=== PATIENT | female | born 1965 | race Caucasian/White ===

== ENCOUNTER 2018-05-01 07:27 | Emergency (ER) | payer OTHER ==
[~2018-05-01] VITALS: Ht 154.9 cm; Wt 60.8 kg
== END 2018-05-01 15:44 | disposition home or self-care (01) ==
LOC: ER 07:27
DX: J45.901 Unspecified asthma with (acute) exacerbation (principal); J11.1 Influenza due to unidentified influenza virus with other respiratory manifestations

== ENCOUNTER 2019-04-16 01:29 | Emergency (ER) | payer OTHER ==
[~2019-04-16] VITALS: Ht 154.9 cm; Wt 61.7 kg
== END 2019-04-16 07:47 | disposition home or self-care (01) ==
LOC: ER 01:29
DX: K52.89 Other specified noninfective gastroenteritis and colitis (principal); E86.0 Dehydration

== ENCOUNTER 2019-06-12 00:10 | Emergency (ER) | payer OTHER ==
[~2019-06-12] VITALS: Ht 154.9 cm; Wt 63.5 kg
[2019-06-12] MEDS ORDERED: MUPIROCIN22 GM TOP ×2 (01:44→01:45)
[2019-06-12] MEDS ORDERED: CEFUROXIME500 MG PO (01:45)
== END 2019-06-12 02:15 | disposition home or self-care (01) ==
LOC: ER 00:10
DX: S50.811A Abrasion of right forearm, initial encounter (principal); W55.01XA Bitten by cat, initial encounter; Y93.89 Activity, other specified; Y92.89 Other specified places as the place of occurrence of the external cause; Y99.8 Other external cause status

== ENCOUNTER 2021-10-25 10:37 | Emergency (ER) | payer OTHER ==
[~2021-10-25] VITALS: Ht 154.9 cm; Wt 59.0 kg
[~2021-10-25 10:37] MED LIST: CEFUROXIME500 MG PO; MUPIROCIN22 GM TOP
[2021-10-25] MEDS ORDERED: AMBIEN5 MG PO (10:56)
== END 2021-10-25 12:26 | disposition home or self-care (01) ==
LOC: ER 10:37
DX: R05.9 Cough, unspecified (principal); Z88.0 Allergy status to penicillin